=== PATIENT | female | born 1990 | race Caucasian/White ===

== ENCOUNTER 2018-06-15 09:30 | Emergency (ER) | payer BC ==
[~2018-06-15] VITALS: Ht 165.1 cm; Wt 53.7 kg
[2018-06-15 09:34] VITALS: BP 132/79; PULSE 85; RESP 20; Ht 165.1 cm; Wt 53.7 kg
[2018-06-15] MEDS ORDERED: CIPR500T4 PO (10:38)
--- NOTE | 2018-06-15 10:44 | ERD ---
ER Documentation Chief Complaint Chief Complaint Complains of blood in the urine since this am HPI 27-year-old female presenting with hematuria. Patient has some dysuria a week ago and then started having some bloody urine today. No history of STDs. Patient denies any vaginal discharge. Denies any pelvic pain. Denies history of STDs. Patient is sexual active. Denies medical problems. Allergy to penicillin. Surgical history denies. Social history denies ROS All systems reviewed and are negative except as per history of present illness. Medications Home Meds Active Scripts Ciprofloxacin Hcl* (Ciprofloxacin Hcl*) 500 Mg Tablet, 500 MG PO BID for 7 Days, TAB Prov:JACOB PHILLIPS PA-C 06/15/18 PMhx/Soc Medical and Surgical Hx: pt denies Medical Hx, pt denies Surgical Hx Hx Alcohol Use: No Hx Substance Use: No Hx Tobacco Use: No Smoking Status: Never smoker FmHx Family History: No diabetes, No coronary disease, No other Physical Exam Vitals Vital Signs Date Temp Pulse Resp B/P (MAP) Pulse Ox O2 O2 Flow FiO2 Time Delivery Rate 06/15/18 98.0 85 20 132/79 99 09:34 (96) Physical Exam GENERAL: The patient is well-appearing, well-nourished, in no acute distress CHEST: Clear to auscultation bilaterally. There are no rales, wheezes or rhonchi. HEART: Regular rate and rhythm. No murmurs, clicks, rubs or gallops. No S3 or S4. ABDOMEN:Soft, nontender and nondistended. Good bowel sounds. No rebound or guarding. No gross peritonitis. No gross organomegaly or masses. BACK: No midline or flank tenderness. Results 24 hrs Laboratory Tests Test 06/15/18 10:09 06/15/18 10:10 Bedside Urine pH (LAB) 5.5 Bedside Urine Protein (LAB) 3+ Bedside Urine Glucose (UA) Negative Bedside Urine Ketones (LAB) Negative Bedside Urine Blood 3+ Bedside Urine Nitrite (LAB) Negative Bedside Urine Leukocyte Esterase (L Trace POC Beta HCG, Qualitative NEGATIVE Procedures/MDM ER course urine culture sent. STD screening sent. Urine negative. Urinalysis concerning for UTI. MDM: 27-year-old female presenting with hematuria. Patient has findings consistent with urinary tract infection. I have low suspicion for pyelonephritis. I have low suspicion for pelvic emergency. I have low suspicion for acute abdominal emergency. Exam is non-concerning. Patient is discharged with stricter precautions and told to follow-up with primary care within 1-2 days for close evaluation. Patient is told symptoms change or worsen to return immediately to the ER. All questions answered at discharge Departure Diagnosis: Primary Impression: UTI (urinary tract infection) Condition: Stable Patient Instructions: Understanding Urinary Tract Infections (UTIs) Referrals: PENDING SALE TO [facility] YOU HAVE RECEIVED A MEDICAL SCREENING EXAM AND THE RESULTS INDICATE THAT YOU DO NOT HAVE A CONDITION THAT REQUIRES URGENT TREATMENT IN THE EMERGENCY DEPARTMENT. FURTHER EVALUATION AND TREATMENT OF YOUR CONDITION CAN WAIT UNTIL YOU ARE SEEN IN YOUR DOCTORS OFFICE WITHIN THE NEXT 1-2 DAYS. IT IS YOUR RESPONSIBILITY TO MAKE AN APPOINTMENT FOR FOLOW-UP CARE. IF YOU HAVE A PRIMARY DOCTOR --you should call your primary doctor and schedule an appointment IF YOU DO NOT HAVE A PRIMARY DOCTOR YOU CAN CALL OUR PHYSICIAN REFERRAL HOTLINE AT IF YOU CAN NOT AFFORD TO SEE A PHYSICIAN YOU CAN CHOSE FROM THE FOLLOWING [facility] [address] [facility] [address] [facility] [address] [facility] [address] [facility] [address] [facility]. [facility]. [address] Additional Instructions: FOLLOW UP WITH YOUR PRIMARY CARE PHYSICIAN TOMORROW.Return to this facility if you are not improving as expected. JACOB PHILLIPS PA-C Jun 15, 2018 10:44
[2018-06-16] MEDS ORDERED: LIDOCAINE 1% (MPF) 5 ML VIAL ONE (14:37)
== END 2018-06-15 10:50 | disposition home or self-care (01) ==
LOC: FTE 09:30
DX: N39.0 Urinary tract infection, site not specified (principal)
CPT/HCPCS: 81003; 81025; 87086; 87591; 99283